=== PATIENT | female | born 1990 | race African-American/Black ===

== ENCOUNTER 2019-04-10 19:01 | Inpatient (IN) | payer OTHER ==
[2019-04-10] MEDS ORDERED: PROMETHAZINE HCL 25 MG/1 ML VIAL IVPUSH ONE (19:44)
[2019-04-10] MEDS ORDERED: BUTORPHANOL TARTRATE 1 MG/ML VIAL IVPB ONE (19:44)
[2019-04-10] MEDS ORDERED: DEXTROSE 5%-LACTATED RINGERS 1,000 ML IV SCH (19:45)
--- NOTE | 2019-04-10 19:50 | HP ---
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: Alzheimer's, CVA, Dementia, Migraine, Multiple Sclerosis, Peripheral Neuropathy, Parkinson's, Seizure, Syncope, TIA, Vertigo, Other Cardiovascular: No: AFIB, Aneurysm, Aortic Insufficiency, Aortic Stenosis, CAD, CHF, Deep Vein Thrombosis, HTN, Hyperlipdemia, [place], Mitral Insufficiency, Mitral Stenosis, Murmur, Pulmonary Hypertension, Other Pulmonary: No: Asthma, Bronchitis, Cancer, COPD, O2 Dependent, Pneumonia, Previously Intubated, Pulmonary Embolus, Pulmonary Fibrosis, Sleep Apnea, Other Gastrointestinal: No: Ascites, Cancer, Constipation, Crohn's Disease, Diverticulitis, Diverticulosis, Esophageal Varices, Gastritis, GERD, GI Bleed, Hemorrhoids, Hiatal Hernia, Inflamatory Bowel Disease, Irritable Bowel Disease, Pancreatitis, Peptic Ulcer Disease, Ulcerative Colitis, Other Hepatobiliary: No: Cirrhosis, Cholelithiasis, Cholecystitis, Choledocholithiasis , Hepatitis A, Hepatitis B, Hepatitis C, Other Renal/: No: Renal Failure, Renal Inusuff, BPH, Cancer, Hematuria, Hemodialysis , Neurogenic Bladder, Renal Calculi, UTI, Other Reproductive: No: Ectopic , Endometriosis, Fibroids, PID, Polycystic Ovary Syndrome, Postmenopausal, Other ...Para: 2 ...Term: 2 ... Weeks Gestation by Dates: 39 Heme/Onc: No: Anemia, B12 Deficiency, Bleeding Disorder, Cancer, Current Chemotherapy, Current Radiation Therapy, Hemochromatosis, Hypercoaguable State, Myeloproliferative Synd, Sickle Cell Disease, Sickle Cell Trait, Thrombocytopenia, Other Infectious Disease: No: AIDS, C-Diff, Herpes Zoster, HIV, MRSA, STD's, Tuberculosis, VREF, Other Psych: No: Addictions, Anxiety, Bipolar, Depression, Panic, Psychosis, Schizophrenia, Other Musculoskeletal: No: Bursitis, Chronic low back pain, Hemiparesis, Hemiplegia, Osteoarthritis, Paraplegia, Other Rheumatology: No: Fibromyalgia, Gout, Lupus, Rheumatoid Arthritis, Sarcoidosis, Vasculitis, Other ENT: No: Allergic Rhinitis, Sinusitis, Other Endocrine: No: Glendora's Disease, Edwards's Disease, Diabetes Insipidus, Diabetes Mellitus, Hyperparathyroidism, Hyperthyroidism, Hypothyroidism, Osteopenia, SIADH, Other Dermatology: No: Basal Cell, Cellulitis, Eczema, Melanoma, Psoriasis, Squamous Cell, Other - Past Surgical History Past Surgical History: No: None, AAA Repair, AICD, Amputation, Appendectomy, Arthrosocopy, AV Fistula/Graft, Bariatric Surgery, Breast Biopsy, Bypass, CABG, Carotid Endarterectomy, Cataract Removal, Cholecystectomy, Colectomy, Colonoscopy, Colostomy, Craniotomy, , Cystectomy, Hernia Repair, Hysterectomy, Ileal Conduit, Ileosotomy, Joint Replacement, Kidney Transplant, Laminectomy, Liver Transplant, Mastectomy, Nephrectomy, Oopherectomy, Orchiectomy, Permanent Pacemaker, Prostatectomy, Splenectomy, Stent, Thoracotomy , TURP, Tonsillectomy, Tubal Ligation, Upper Endoscopy, Valve Replacement, Vasectomy, Vein Stripping/Ligation Hx Myomectomy: No Hx Transabdominal Cerclage: No - Advance Directives Advance Directives: Yes: Health Care Proxy - Smoking History Smoking history: Never smoked Have you smoked in the past 12 months: No - Alcohol/Substance Use Hx Alcohol Use: No History of Substance Use: reports: None - Social History Usual Living Arrangement: Yes: With Spouse Do you think of yourself as: Declined to answer ADL: Independent History of Recent Travel: No Home Medications - Allergies Allergies/Adverse Reactions: Allergies Allergy/AdvReac Type Severity Reaction Status Date / Time No Known Allergies Allergy Verified 04/10/19 19:44 Family Medical History Family History: Denies Review of Systems - Review of Systems Constitutional: reports: No Symptoms Eyes: reports: No Symptoms HENT: reports: No Symptoms Neck: reports: No Symptoms Cardiovascular: reports: No Symptoms Respiratory: reports: No Symptoms Gastrointestinal: reports: No Symptoms Genitourinary: reports: No Symptoms Breasts: reports: No Symptoms Reported Musculoskeletal: reports: No Symptoms Integumentary: reports: No Symptoms Neurological: reports: No Symptoms Endocrine: reports: No Symptoms Hematology/Lymphatic: reports: No Symptoms Psychiatric: reports: No Symptoms Physical Exam - Maternity Constitutional: Yes: Well Nourished, No Distress, Calm Eyes: Yes: WNL, Conjunctiva Clear, EOM Intact HENT: Yes: WNL, Atraumatic, Normocephalic Neck: Yes: WNL, Supple, Trachea Midline Cardiovascular: Yes: WNL, Regular Rate and Rhythm Lungs: Clear to auscultation Breast(s): Yes: WNL - Abdominal Exam/OB Fundal Height: 38 Number of Fetuses: Single Presentation: Vertex Contractions: Yes Regularity: Regular Intensity: Mild/Mod Monitor Mode: External Heart Rate Location: [facility] Category: I Accelerations: Uniform Decelerations: None - Vaginal Exam/OB Vaginal Bleediing: No Speculum Exam: No Dilatation (cm): 3 Effacement (%): 70 Amniotic Membrane Status: Intact Presentation: Vertex/Position Station: -1 - Physical Exam Musculoskeletal: Yes: WNL Extremities: Yes: WNL Edema: Yes Edema: LUE: 1+, RUE: 1+, LLE: 1+, RLE: 1+ Integumentary: Yes: WNL Deep Tendon Reflex Grade: Normal +2 ...Motor Strength: WNL Psychiatric: Yes: WNL, Alert, Oriented Assessment/Plan for labor by herself
[2019-04-10 21:31] LABS: BASO % 0.3 % (0-2.0); EOS % 0.3 % (0-4.5); HEMATOCRIT 37.1 % (32.4-45.2); HEMOGLOBIN 12.7 GM/dL (10.7-15.3); LYMPH % 26.5 % (8-40); MCH 31.3 pg (25.7-33.7); MCHC 34.3 g/dl (32.0-36.0); MEAN CELL VOLUME 91.3 fl (80-96); MEAN PLT VOLUME 9.2 fl (7.5-11.1); MONO % 11.1 % (3.8-10.2); NEUT % 61.8 % (42.8-82.8); PLATELET COUNT 157 K/MM3 (134-434); RBC 4.06 M/mm3 (3.60-5.2); RDW 14.5 % (11.6-15.6); WHITE BLOOD COUNT 9.7 K/mm3 (4.0-10.0)
[2019-04-10 21:44] LABS: INR 0.93 (0.83-1.09)
[2019-04-10 21:47] LABS: ACTIVATED PTT 31.7 SECONDS (25.2-36.5)
[2019-04-10 21:50] LABS: CALCIUM 8.6 mg/dL (8.5-10.1); CREATININE 0.8 mg/dL (0.55-1.3); POTASSIUM 3.9 mmol/L (3.5-5.1)
[2019-04-10 22:00] VITALS: BMI 26.4
[2019-04-11] MEDS ORDERED: OXYTOCIN 20 UNITS in 0.9% NS 20 UNIT/1,000 ML INFUS.BAG IV ONE ×2 (01:05→02:38)
[2019-04-11] MEDS ORDERED: LIDOCAINE HCL 1% PRESERVATIVE FREE - 30ML VIAL ONE (01:05)
[2019-04-11] MEDS ORDERED: BENZOCAINE 20% 57 GM BOTTLE TP PRN (01:35)
[2019-04-11] MEDS ORDERED: WITCH HAZEL 50% (TUCKS) 40 PAD/JAR PAD TP PRN (01:35)
[2019-04-11] MEDS ORDERED: oxyCODONE HCL 5 MG TABLET PO PRN (01:35)
[2019-04-11] MEDS ORDERED: METHYLERGONOVINE MALEATE 0.2 MG/1 ML AMP IM PRN (01:35)
[2019-04-11] MEDS ORDERED: BISACODYL 10 MG SUPP.RECT RC PRN (01:35)
[2019-04-11] MEDS ORDERED: BENZOCAINE 28 GM HEMORRHOIDAL OINTMENT TP PRN (01:35)
--- NOTE | 2019-04-11 01:40 | PN ---
Progress Note (short form) - Note Progress Note: 11 pm 4 cm, -1, 80%, uc q 3 to 5 min, declined epidural nor stadol, offered
[2019-04-11] MEDS ORDERED: IBUPROFEN 600 MG TABLET (FP) PO ONE (01:41)
[2019-04-11] MEDS ORDERED: ACETAMINOPHEN 325 MG TABLET (FP) ONE (01:41)
--- NOTE | 2019-04-11 01:41 | PN ---
Progress Note (short form) - Note Progress Note: 1 am 7 cm, 0 station, 90%, srom , pushing soon
--- NOTE | 2019-04-11 01:46 | PN ---
Delivery - Delivery Vaginal Delivery: No Problems Type of Anesthesia: None Episiotomy/Laceration: None EBL (cc): 150 Delivery, Single - Stages of Labor Date 1st Stage Initiatied: 04/10/19 Time 1st Stage Initiated: 17:00 Date 2nd Stage Initiated: 04/11/19 Time 2nd Stage Initiated: 01:18 Date of Delivery: 04/11/19 Time of Delivery: 01:20 Date Placenta Delivered: 04/11/19 Time Placenta Delivered: :25 Placenta: Yes: Spontaneous - Condition of Media Relations Director/Wax Pattern Coater Present: No Gender: Male Position: Left, OA Total Hours ROM (Hrs/Mins): 10 min - 1 Minute Total Score: 9 5 Minutes Total Score: 9 - [place] Feeding Plan Initial Plan: Elected not to breastfeed exclusively throughout hospitalization Benefits of Exclusively reinforced: Yes - Additional Information: compound station, terminal meconium, no complications
[2019-04-11] MEDS: ACETAMINOPHEN 325 MG TABLET (FP) PO PRN (01:55)
[2019-04-11] MEDS: IBUPROFEN 600 MG TABLET (FP) PO PRN (01:55)
[2019-04-11] MEDS ORDERED: OXYTOCIN 20 UNITS in 0.9% NS 20 UNIT/1,000 ML INFUS.BAG IV SCH (02:30)
--- NOTE | 2019-04-11 12:06 | DS ---
Physical Exam-LICENSED MASTER SOCIAL WORKER Vital Signs: Vital Signs Temperature 98.5 F 04/11/19 08:00 Pulse Rate 77 04/11/19 08:00 Respiratory Rate 20 04/11/19 08:00 Blood Pressure 117/74 04/11/19 08:00 O2 Sat by Pulse Oximetry (%) Constitutional: Yes: Well Nourished, No Distress, Calm Eyes: Yes: WNL, Conjunctiva Clear, EOM Intact HENT: Yes: WNL, Atraumatic, Normocephalic Neck: Yes: WNL, Supple, Trachea Midline Cardiovascular: Yes: WNL, Regular Rate and Rhythm Respiratory: Yes: WNL, Regular, CTA Bilaterally Gastrointestinal: Yes: WNL, Normal Bowel Sounds, Soft ...Rectal Exam: Yes: WNL Renal/: Yes: WNL Pelvis: Yes: WNL External Genitalia: Yes: Normal Internal Exam Deferred: No Vaginal Exam: Yes: Normal Cervix: Yes: Normal Uterus: Yes: Normal ....Post : Yes: Uterus firm, Uterus non-tender Breast(s): Yes: WNL Musculoskeletal: Yes: WNL Extremities: Yes: WNL Edema: Yes Edema: LUE: 1+, RUE: 1+, LLE: 1+, RLE: 1+ Integumentary: Yes: WNL Wound/Incision: Yes: Clean/Dry, Well Approximated Neurological: Yes: WNL, Alert, Oriented ...Motor Strength: WNL Labs: CBC, BMP 04/10/19 20:45 04/10/19 20:45 Delivery - Delivery Vaginal Delivery: No Problems Type of Anesthesia: None Episiotomy/Laceration: None EBL (cc): 150 Delivery, Single - Stages of Labor Date 1st Stage Initiatied: 04/10/19 Time 1st Stage Initiated: 17:00 Date 2nd Stage Initiated: 04/11/19 Time 2nd Stage Initiated: 01:18 Date of Delivery: 04/11/19 Time of Delivery: 01:20 Time Placenta Delivered: 01:25 Placenta: Yes: Spontaneous - Condition of Infant Health Information Internship/Clinic Specialist Present: No Gender: Male Weight: 3.062 kg Position: Left, OA Total Hours ROM (Hrs/Mins): 10 min - 1 Minute Total Score: 9 5 Minutes Total Score: 9 - [place] Feeding Plan Initial Plan: Elected not to breastfeed exclusively throughout hospitalization Benefits of Exclusively reinforced: Yes Discharge Summary Problems reviewed: Yes Reason For Visit: LABOR ADMIT Procedures: Principal: Hospital Course: good, Health Concerns: none Plan of Treatment: bed rest as much as possible Goals: return to work in 6 weeks Condition: Stable - Instructions Diet, Activity, Other Instructions: regular Disposition: HOME - Home Medications Comprehensive Discharge Medication List: Ambulatory Orders Etanercept [Enbrel] 50 mg SQ WEEKLY 04/11/19 Ferrous Sulfate [Feosol] 325 mg PO DAILY 04/11/19 Lactobacillus Combo No.10 [Probiotic] 1 each PO DAILY 04/11/19 Pnv No.95/Ferrous Fum/Folic AC [ Vitamin Tablet] 1 each PO DAILY Prescription Drug Monitoring Program (I-STOP) results: I-STOP reviewed and no issues identified
[2019-04-12] MEDS: ACETAMINOPHEN 325 MG TABLET (FP) PO PRN (01:26)
[2019-04-12] MEDS: IBUPROFEN 600 MG TABLET (FP) PO PRN (01:27)
[2019-04-12 08:19] LABS: BASO % 0.7 % (0-2.0); EOS % 0.4 % (0-4.5); HEMATOCRIT 32.8 % (32.4-45.2); HEMOGLOBIN 11.4 GM/dL (10.7-15.3); LYMPH % 22.7 % (8-40); MCHC 34.7 g/dl (32.0-36.0); MEAN CELL VOLUME 92.4 fl (80-96); MEAN PLT VOLUME 8.5 fl (7.5-11.1); MONO % 8.5 % (3.8-10.2); NEUT % 67.7 % (42.8-82.8); PLATELET COUNT 150 K/MM3 (134-434); RBC 3.55 M/mm3 (3.60-5.2); RDW 14.6 % (11.6-15.6)
[2019-04-12 12:02] VITALS: BP 106/68; PULSE 61; TEMP 97.8
--- NOTE | 2019-04-12 15:20 | PN ---
Post Progress Note Post Day: 2 Type of Delivery: Vital Signs: Vital Signs Temperature 97.8 F 04/12/19 07:00 Pulse Rate 61 04/12/19 07:00 Respiratory Rate 20 04/12/19 07:00 Blood Pressure 106/68 04/12/19 07:00 O2 Sat by Pulse Oximetry (%) Breast Exam: Yes: Soft Uterus: Yes: Fundus Firm Abdomen/GI: Yes: Abdomen soft, Passing flatus, Tolerating PO Lochia: Yes: Serosa Lochia, amount: Small Extremities: Yes: Calves non-tender Perineum: Yes: Intact - Labs Labs: CBC WBC 9.0 K/mm3 (4.0-10.0) 04/12/19 07:55 RBC 3.55 M/mm3 (3.60-5.2) L 04/12/19 07:55 Hgb 11.4 GM/dL (10.7-15.3) 04/12/19 07:55 Hct 32.8 % (32.4-45.2) 04/12/19 07:55 MCV 92.4 fl (80-96) 04/12/19 07:55 MCH 32.0 pg (25.7-33.7) 04/12/19 07:55 MCHC 34.7 g/dl (32.0-36.0) 04/12/19 07:55 RDW 14.6 % (11.6-15.6) 04/12/19 07:55 Plt Count 150 K/MM3 (134-434) 04/12/19 07:55 MPV 8.5 fl (7.5-11.1) 04/12/19 07:55 Absolute Neuts (auto) 6.1 K/mm3 (1.5-8.0) 04/12/19 07:55 Neutrophils % 67.7 % (42.8-82.8) 04/12/19 07:55 Lymphocytes % 22.7 % (8-40) 04/12/19 07:55 Monocytes % 8.5 % (3.8-10.2) 04/12/19 07:55 Eosinophils % 0.4 % (0-4.5) 04/12/19 07:55 Basophils % 0.7 % (0-2.0) 04/12/19 07:55 Nucleated RBC % 0 % (0-0) 04/12/19 07:55 Assessment/Plan dc pt home today
[2019-04-12] MEDS ORDERED: SENNOSIDES/DOCUSATE COMBO (SENNA PLUS) TABLET (UD) PO PRN (22:00)
== END 2019-04-12 15:50 | disposition home or self-care (01) | DRG 807 ==
LOC: JLAB 19:01 → JLDR 19:30 → J3W 04-11 02:55
PROVIDERS: ADMIT Obstetrics & Gynecology; ATTEND Obstetrics & Gynecology
PROC: 10E0XZZ Delivery of Products of Conception, External Approach (ICD-10-PCS; principal; 2019-04-11)
DX: O80 Encounter for full-term uncomplicated delivery (principal); Z37.0 Single live birth; Z3A.39 39 weeks gestation of pregnancy
CPT/HCPCS: 36415; 59025; 59409; 80048; 85025; 85610; 85730; 86593; 86850; 86900; 86901; 87389